=== PATIENT | male | born 1985 | race Caucasian/White ===

== ENCOUNTER 2023-01-04 18:19 | Emergency (ER) | payer SELFPAY ==
--- NOTE | 2023-01-04 18:21 | ED.GENADULT ---
HPI - General Adult General Chief complaint: Abdominal Pain <NJ Dan - Last Filed: 01/04/23 18:23> Stated complaint: abdominal pain, vomiting <NJ Dan - Last Filed: 01/04/23 18:23> Time Seen by Provider: 01/04/23 22:03 <NJ Dan - Last Filed: 01/04/23 18:23> Source: patient <Lisandra Mckay MD - Last Filed: 01/04/23 22:29> Mode of arrival: ambulatory <Lisandra Mckay MD - Last Filed: 01/04/23 22:29> Limitations: no limitations <Lisandra Mckay MD - Last Filed: 01/04/23 22:29> History of Present Illness HPI narrative: Patient comes to the emergency room complaining of epigastric burning sensation. Patient states it started approximately 12 hours ago . patient denies chest pain, shortness of breath, denies nausea vomiting or diarrhea. Patient states that any time that he tries to drink something, his stomach grubbs. Patient states that he has no history gastritis or peptic ulcer disease. But he does eat nearly every day very spicy and acidic food. Patient states that he used to drink a lot of alcohol in the past but he does not drink anymore. Patient admits to smoking marijuana. Patient states that he rarely uses any NSAIDs <Lisandra Mckay MD - Last Filed: 01/04/23 22:29> Related Data Home medications: Previous Rx's Medication Instructions Recorded omeprazole 20 mg capsule,delayed 20 mg PO DAILY #14 caps 01/04/23 release <NJ Dan - Last Filed: 01/04/23 18:23> Allergies/adverse reactions: Allergies Allergy/AdvReac Type Severity Reaction Status Date / Time No Known Allergies Allergy Verified 01/04/23 18:23 <NJ Dan - Last Filed: 01/04/23 18:23> Review of Systems Review of Systems: Constitutional : No Weight loss, No Fever, No Chills, No Night Sweats, No Fatigue, No Malaise ENT/Mouth : No Hearing loss, No Ear Pain, No Nasal Congestion, No Sinus Pain, No Hoarseness, No sore throat, No Rhinorrhea, No Swallowing Difficulty Eyes: No Eye Pain, No Swelling, No Redness, No Foreign Body, No Discharge, No Vision Changes Cardiovascular : No Chest Pain, No SOB, No Dyspnea on Exertion, No Orthopnea, No Edema, No Palpitations Respiratory : No Cough, No Sputum, No Wheezing, No Smoke Exposure, No Dyspnea Gastrointestinal : No Nausea, No Vomiting, No Diarrhea, No Constipation, complaining of epigastric burning sensation Genitourinary : no irregular bleeding, No Dysuria, No Urinary Frequency, No Hematuria, No Urinary Incontinence, No Urgency, No Flank Pain, No Urinary Flow Changes, No Hesitancy Musculoskeletal : No joint pain, No Myalgias, No Joint Swelling Skin : No Skin Lesions, No rash Neuro : No Weakness, No Numbness, No Paresthesias, No Loss of Consciousness, No Dizziness, No Headache Psych : No Anxiety/Panic, No Depression, No SI/HI/AH/VH, No Social Issues, Heme/Lymph: No Bruising, No Bleeding,No Lymphadenopathy Endocrine : No Polyuria, No Polydipsia, No Temperature Intolerance <Lisandra Mckay MD - Last Filed: 01/04/23 22:29> [facility] Social History Social History: Social History Advance Directives: No Advance Directives Information Provided: No <NJ Dan - Last Filed: 01/04/23 18:23> Physical Exam ED Vital Signs: Vital Signs - 24 hr 01/04/23 18:23 Temperature 98.2 F Pulse Rate 86 Respiratory Rate 16 Blood Pressure 144/87 H Pulse Oximetry 98 Oxygen Delivery Method Room Air BMI result Body Mass Index 18.2 <NJ Dan - Last Filed: 01/04/23 18:23> Vital Signs - 24 hr 01/04/23 18:23 Temperature 98.2 F Pulse Rate 86 Respiratory Rate 16 Blood Pressure 144/87 H Pulse Oximetry 98 Oxygen Delivery Method Room Air BMI result Body Mass Index 18.2 <Lisandra Mckay MD - Last Filed: 01/04/23 22:29> Const Other: Appearance: Alert. Oriented X3. No acute distress. Eyes: Pupils equal, round and reactive to light. ENT: Pharynx normal. Neck: Normal inspection. Neck supple. No lymph nodes noted. No crepitus CVS: Normal heart rate and rhythm. Pulses normal. Normal S1 and S2 Respiratory: No respiratory distress. Breath sounds normal. No Wheezing. No rales Abdomen: Soft and nontender. No rigidity. No distention. Skin: Skin warm and dry. Normal skin color. Normal skin turgor. Extremities: No lower extremity edema. No Lacerations. No Rash Neuro: Oriented X 3. No motor deficit. No sensory deficit. Moving all extremities. No slurred speech. CN 2 through 12 grossly intact Psych: calm, cooperative, normal affect <Lisandra Mckay MD - Last Filed: 01/04/23 22:29> Course Course Course Narrative: RME performed by Ruma Royal PA-C. Patient is a 37 year old male presenting to the emergency department with abdominal pain, nausea, and vomiting. Patient states that he is having epigastric pain and has been vomiting. Labs ordered. Patient placed back in the waiting room pending room availability and results. <NJ Dan - Last Filed: 01/04/23 18:23> Medical Decision Making Medical Decision Making [facility] Narrative: -patient's labs and unremarkable -physical exam is normal, no abdominal tenderness, perforation of suspected -EKG interpreted by me: Sinus rhythm, heart rate 77, no acute abnormalities, QTC 418 -patient states that he is terrified of needles and would prefer all the treatment to be given p.o.. Patient given p.o. viscous lidocaine, Maalox, sublingual ondansetron <Lisandra Mckay MD - Last Filed: 01/04/23 22:29> Differential Diagnosis Differential Diagnoses: The differential diagnosis associated with the presentation includes (Gastritis, peptic ulcer disease, gastroenteritis) <Lisandra Mckay MD - Last Filed: 01/04/23 22:29> Lab Data [facility] Lab Attestation statement: I reviewed the patient's lab results. <Lisandra Mckay MD - Last Filed: 01/04/23 22:29> Result Diagrams: 01/04/23 18:45 01/04/23 18:45 <NJ Dan - Last Filed: 01/04/23 18:23> Labs: Lab Results 01/04/23 01/04/23 Range/Units 18:45 18:45 WBC 10.9 H (4.8-10.8) X10*3/uL RBC 4.86 (4.60-5.80) X10*6/uL Hgb 15.7 (14.0-18.0) g/dl Hct 45.3 (42.0-52.0) % MCV 93.2 (80.0-98.0) fL MCH 32.3 (27.0-33.0) pg MCHC 34.7 (31.0-36.0) g/dl RDW 12.4 (11.0-16.0) % Plt Count 193 (160-400) X10*3/uL MPV 11.2 (9.4-12.4) fL Immature Gran % (Auto) 0.5 H (0.0-0.4) % Neut % (Auto) 88.2 H (45-73) % Lymph % (Auto) 4.0 L (20-40) % [place] % (Auto) 5.7 (2-11) % Eos % (Auto) 1.4 (0-4) % Baso % (Auto) 0.2 (0-2) % Lymph # (Auto) 0.4 L (1.2-4.9) X10*3/uL [place] # (Auto) 0.6 (0.1-1.2) X10*3/uL Eos # (Auto) 0.2 (0.0-0.4) X10*3/uL Baso # (Auto) 0.0 (0.0-0.2) X10*3/uL Abs Immat Gran (auto) 0.05 H (0.00-0.03) X10*3/uL Absolute Neuts (auto) 9.6 H (2.0-8.3) x10*3/uL Absolute Nucleated RBC 0.000 (0.0-0.012) X10*3/uL Nucleated RBC % (auto) 0.0 (0.0-0.2) /100WBC Sodium 140 (135-145) mmol/L Potassium 5.0 (3.3-5.1) mmol/L Chloride 104 (96-108) mmol/L Carbon Dioxide 28 (22-29) mmol/L Anion Gap 13 (12-20) BUN 17 H (9-16) mg/dL Creatinine 0.87 (0.5-1.4) mg/dL Estim Creat Clear Calc 91.2 Estimated GFR > 60 Random Glucose 88 (60-115) mg/dL Calcium 9.5 (8.4-10.2) mg/dL Magnesium 2.1 (1.6-2.6) mg/dL Total Bilirubin 0.8 (0.0-1.0) mg/dL AST 19 (5-37) U/L ALT 15 (0-40) U/L Alkaline Phosphatase 85 (39-117) U/L Total Protein 7.7 (6.5-8.0) g/dL Albumin 4.8 (3.5-5.0) g/dL Lipase 47 (8-78) U/L <NJ Dan - Last Filed: 01/04/23 18:23> Lab Results 01/04/23 01/04/23 Range/Units 18:45 18:45 WBC 10.9 H (4.8-10.8) X10*3/uL RBC 4.86 (4.60-5.80) X10*6/uL Hgb 15.7 (14.0-18.0) g/dl Hct 45.3 (42.0-52.0) % MCV 93.2 (80.0-98.0) fL MCH 32.3 (27.0-33.0) pg MCHC 34.7 (31.0-36.0) g/dl RDW 12.4 (11.0-16.0) % Plt Count 193 (160-400) X10*3/uL MPV 11.2 (9.4-12.4) fL Immature Gran % (Auto) 0.5 H (0.0-0.4) % Neut % (Auto) 88.2 H (45-73) % Lymph % (Auto) 4.0 L (20-40) % [place] % (Auto) 5.7 (2-11) % Eos % (Auto) 1.4 (0-4) % Baso % (Auto) 0.2 (0-2) % Lymph # (Auto) 0.4 L (1.2-4.9) X10*3/uL [place] # (Auto) 0.6 (0.1-1.2) X10*3/uL Eos # (Auto) 0.2 (0.0-0.4) X10*3/uL Baso # (Auto) 0.0 (0.0-0.2) X10*3/uL Abs Immat Gran (auto) 0.05 H (0.00-0.03) X10*3/uL Absolute Neuts (auto) 9.6 H (2.0-8.3) x10*3/uL Absolute Nucleated RBC 0.000 (0.0-0.012) X10*3/uL Nucleated RBC % (auto) 0.0 (0.0-0.2) /100WBC Sodium 140 (135-145) mmol/L Potassium 5.0 (3.3-5.1) mmol/L Chloride 104 (96-108) mmol/L Carbon Dioxide 28 (22-29) mmol/L Anion Gap 13 (12-20) BUN 17 H (9-16) mg/dL Creatinine 0.87 (0.5-1.4) mg/dL Estim Creat Clear Calc 91.2 Estimated GFR > 60 Random Glucose 88 (60-115) mg/dL Calcium 9.5 (8.4-10.2) mg/dL Magnesium 2.1 (1.6-2.6) mg/dL Total Bilirubin 0.8 (0.0-1.0) mg/dL AST 19 (5-37) U/L ALT 15 (0-40) U/L Alkaline Phosphatase 85 (39-117) U/L Total Protein 7.7 (6.5-8.0) g/dL Albumin 4.8 (3.5-5.0) g/dL Lipase 47 (8-78) U/L <Lisandra Mckay MD - Last Filed: 01/04/23 22:29> Discharge Plan Discharge Clinical Impression: Gastritis <NJ Dan - Last Filed: 01/04/23 18:23> Patient Disposition: Home, Self-Care <NJ Dan - Last Filed: 01/04/23 18:23> Instructions: Gastritis (ED), Diet for Stomach Ulcers and Gastritis (ED) <NJ Dan - Last Filed: 01/04/23 18:23> Additional Instructions: Please follow-up with your primary care physician tomorrow. If you have any worsening or new symptoms, please return to the emergency room or call 911 <NJ Dan - Last Filed: 01/04/23 18:23> Prescriptions: New omeprazole 20 mg capsule,delayed release(DR/EC) 20 mg PO DAILY Qty: 14 0RF <NJ Dan - Last Filed: 01/04/23 18:23>
[2023-01-04 18:23] VITALS: BP 144/87; PULSE 86; RESP 16; TEMP 36.8; O2SAT 98; BMI 18.2
[2023-01-04 18:50] LABS: MANUAL DIFF FLAG NO
[2023-01-04 18:57] LABS: Basophils Percent Auto 0.2 % (0-2); Eosinophils Absolute Auto 0.2 X10*3/uL (0.0-0.4); Eosinophils Percent Auto 1.4 % (0-4); Hematocrit 45.3 % (42.0-52.0); Hemoglobin 15.7 g/dl (14.0-18.0); Imm Gran Abs Auto 0.05 X10*3/uL (0.00-0.03); Imm Gran Pct Auto 0.5 % (0.0-0.4); Lymphocytes Absolute Auto 0.4 X10*3/uL (1.2-4.9); Mean Corpuscular HGB Conc 34.7 g/dl (31.0-36.0); Mean Corpuscular Hemoglobin 32.3 pg (27.0-33.0); Mean Corpuscular Volume 93.2 fL (80.0-98.0); Mean Platelet Volume 11.2 fL (9.4-12.4); Monocytes Absolute Auto 0.6 X10*3/uL (0.1-1.2); Monocytes Percent Auto 5.7 % (2-11); Neutrophils Absolute Auto 9.6 x10*3/uL (2.0-8.3); Neutrophils Percent Auto 88.2 % (45-73); Platelet Count 193 X10*3/uL (160-400); Red Blood Count 4.86 X10*6/uL (4.60-5.80); Red Cell Distribution Width 12.4 % (11.0-16.0); White Blood Count 10.9 X10*3/uL (4.8-10.8)
[2023-01-04 19:15] LABS: Alanine Aminotransferase 15 U/L (0-40); Albumin Level 4.8 g/dL (3.5-5.0); Alkaline Phosphatase 85 U/L (39-117); Anion Gap 13 (12-20); Aspartate Amino Transferase 19 U/L (5-37); Bilirubin Total 0.8 mg/dL (0.0-1.0); Blood Urea Nitrogen 17 mg/dL (9-16); Calcium 9.5 mg/dL (8.4-10.2); Carbon Dioxide 28 mmol/L (22-29); Creatinine Clr Calc Pharmacy 91.2; Estimated Glomerular Filt Rate > 60; Glucose Random 88 mg/dL (60-115); Lipase 47 U/L (8-78); Magnesium 2.1 mg/dL (1.6-2.6); Total Protein 7.7 g/dL (6.5-8.0)
[2023-01-04 19:20] LABS: Chloride 104 mmol/L (96-108); Sodium 140 mmol/L (135-145)
--- NOTE | 2023-01-04 22:10 | ECG_ITS ---
Test Reason : ABDOMIAL PAIN Blood Pressure : / mmHG Vent. Rate : 077 BPM Atrial Rate : 077 BPM P-R Int : 136 ms QRS Dur : 080 ms QT Int : 370 ms P-R-T Axes : 072 076 071 degrees QTc Int : 418 ms Normal sinus rhythm with sinus arrhythmia Minimal voltage criteria for LVH, may be normal variant ( Sokolow-Bell ) Borderline ECG No previous ECGs available Referred By: Lisandra Mckay Electronically Signed By:BLANCA PASTOR
[2023-01-04] MEDS: Ondansetron ODT 4 MG TAB.RAPDIS TRANSLINGU (22:43)
[2023-01-04] MEDS: Magnesium Hydrox/Alum Hydrox 30 ML ORAL.SUSP PO (22:43)
[2023-01-04] MEDS: Lidocaine HCl Viscous 2 % 15 ML SOLUTION MUCOUS MEM (22:43)
--- NOTE | 2023-01-04 22:44 | PC.NURSE ---
pt medicated per provider order.
== END 2023-01-04 22:47 | disposition home or self-care (01) ==
PROVIDERS: Physician Assistant Medical; Emergency Provider Emergency Medicine
DX: K29.70 Gastritis, unspecified, without bleeding (principal); F12.90 Cannabis use, unspecified, uncomplicated; Z79.899 Other long term (current) drug therapy
CPT/HCPCS: 36415; 80053; 83690; 83735; 85025; 93005; 99283